=== PATIENT | female | born 1980 | race Caucasian/White ===

== ENCOUNTER → 2016-03-13 | Outpatient (CLI) | payer BC ==
[~2016-03-13] MED LIST: CALCIUM1 CAP PO; IBU800 M1 PO; MOTRIN 600600 MG/TAB PO; PERCOCET 325 MG1 TA2 PO; PRENATAL1 TA1 PO; SLOW FE45 MG PO; Senokot-S PO
== END ==
LOC: SUN.DIA 09:25
DX: O24.419 Gestational diabetes mellitus in pregnancy, unspecified control (principal); Z3A.32 32 weeks gestation of pregnancy; Z71.3 Dietary counseling and surveillance
CPT/HCPCS: G0108

== ENCOUNTER 2016-03-21 14:57 | Inpatient (IN) | payer BC ==
[~2016-03-21] VITALS: Ht 177.8 cm; Wt 97.3 kg
[~2016-03-21 14:57] MED LIST changes: -IBU800 M1 PO
[2016-05-03] VITALS (30 sets, daily range): BP systolic 105–141; BP diastolic 52–88; PULSE 64–111; TEMP 97.6–98
[2016-05-03 08:52] LABS: BASO % 0.2 % (0.0-2.0); EOS % 0.7 % (0-4.0); GRAN # 3.8 (1.4-6.5); GRAN % 66.1 % (42.2-75.2); LYMPH # 1.5 (1.2-3.4); LYMPH % 26.3 % (20.0-51.0); MEAN CELL VOLUME 87 fl (80.0-100.0); MEAN CORPUSCULAR HGB CONC 34 g/dl (33.0-37.0); MEAN PLATELET VOLUME 9.7 fl (7.4-10.4); MONO # 0.4 (0.1-0.6); MONO % 6.5 % (1.7-9.3); PLATELET COUNT 252 K/mm3 (130-400); RED BLOOD COUNT 3.86 M/mm3 (4.10-5.30); REDCELL DISTRIBUTION WIDTH-CV 13.8 % (11.5-14.5); WHITE BLOOD COUNT 5.7 K/mm3 (4.8-10.8)
[2016-05-03 09:03] LABS: HEMATOCRIT 33.5 % (37.0-47.0); HEMOGLOBIN 11.4 g/dl (12.5-16.0); MEAN CORPUSCULAR HEMOGLOBIN 30 pg (27.0-31.0)
[2016-05-04 01:30] VITALS: BP 125/67; PULSE 65; TEMP 97.9
[2016-05-04 08:30] VITALS: BP 110/60; PULSE 82; TEMP 97.3
[2016-05-04] MEDS ORDERED: IBU800 M1 PO (11:46)
[2016-05-04] MEDS ORDERED: PERCOCET 325 MG1 TA2 PO (11:46)
[2016-05-04 21:30] VITALS: BP 124/71; PULSE 75; TEMP 97.5
[2016-05-05 07:05] VITALS: BP 110/56; PULSE 71; TEMP 97.5
== END 2016-05-05 15:55 | disposition home or self-care (01) | DRG 775 ==
LOC: LDR 05-03 06:58 → OB 05-03 20:30 → EDSTATUS 05-09 07:34 → LDRO 05-09 14:56
PROVIDERS: Obstetrics & Gynecology
PROC: 10E0XZZ Delivery of Products of Conception, External Approach (ICD-10-PCS; principal; 2016-05-03)
PROC: 0KQM0ZZ Repair Perineum Muscle, Open Approach (ICD-10-PCS; 2016-05-03)
PROC: 10907ZC Drainage of Amniotic Fluid, Therapeutic from Products of Conception, Via Natural or Artificial Opening (ICD-10-PCS; 2016-05-03)
DX: O99.72 Diseases of the skin and subcutaneous tissue complicating childbirth (principal); L93.0 Discoid lupus erythematosus; O34.211 Maternal care for low transverse scar from previous cesarean delivery; N85.8 Other specified noninflammatory disorders of uterus; O09.523 Supervision of elderly multigravida, third trimester; O70.1 Second degree perineal laceration during delivery; O24.410 Gestational diabetes mellitus in pregnancy, diet controlled; Z3A.39 39 weeks gestation of pregnancy; Z37.0 Single live birth
CPT/HCPCS: J2590; J7120

== ENCOUNTER 2017-01-02 12:02 | Emergency (ER) | payer BC ==
[~2017-01-02] VITALS: Ht 177.8 cm; Wt 80.9 kg
[~2017-01-02 12:02] MED LIST changes: +IBU800 M1 PO
[2017-01-02 12:06] VITALS: TEMP 97.3
[2017-01-02 13:08] LABS: COLLECTION METHOD CLEAN CATCH
[2017-01-02 13:13] LABS: MUCOUS Present /lpf; PH 6 (5-8); SQUAMOUS EPITHELIAL 0-2 /hpf; URINE APPEARANCE Clear; URINE BACTERIA None Seen /hpf; URINE BILIRUBIN Negative (NEGATIVE); URINE BLOOD Negative (NEGATIVE); URINE COLOR Yellow; URINE GLUCOSE Negative (NEGATIVE); URINE KETONE Negative (NEGATIVE); URINE LEUKOCYTE ESTERASE Negative (NEGATIVE); URINE PROTEIN(semi-quant) Negative (NEGATIVE); URINE RBC 0-2 /hpf; URINE UROBILINOGEN Negative (NEGATIVE); URINE WBC 0-2 /hpf
[2017-01-02 13:52] VITALS: BP 112/72; PULSE 67
== END 2017-01-02 13:52 | disposition home or self-care (01) ==
LOC: COL.ER 12:02
PROVIDERS: Emergency Medicine
DX: R07.89 Other chest pain (principal); R51 Headache; Z32.02 Encounter for pregnancy test, result negative

== ENCOUNTER → 2018-03-14 | Outpatient (CLI) | payer BC | LOC: COL.RAD 09:33 | DX: R94.5 Abnormal results of liver function studies (principal) ==

== ENCOUNTER → 2018-04-08 | Outpatient (CLI) | payer BC | LOC: MC.RAD 10:47 | DX: Z12.31 Encounter for screening mammogram for malignant neoplasm of breast (principal) ==

== ENCOUNTER → 2018-08-06 | Outpatient (CLI) | payer BC ==
[~2018-08-06] VITALS: Ht 177.8 cm; Wt 81.5 kg
[2018-08-06] VITALS (13 sets, daily range): BP systolic 115–149; BP diastolic 65–80; PULSE 57–75
--- NOTE | 2018-08-06 13:45 | NUR ---
Pt to ct per ambulation. Pt layed in supine position. Monitors applied.
--- NOTE | 2018-08-06 14:12 | NUR ---
Specimens obtained by Dr Ramsey and placed in formalin. Specimen labeled.
== END ==
LOC: COL.RAD 13:14
DX: I73.00 Raynaud's syndrome without gangrene (principal); R94.5 Abnormal results of liver function studies; M32.9 Systemic lupus erythematosus, unspecified
CPT/HCPCS: 32108

== ENCOUNTER → 2019-05-06 | Outpatient (CLI) | payer BC | LOC: MC.RAD 11:00 | DX: Z12.31 Encounter for screening mammogram for malignant neoplasm of breast (principal) ==

== ENCOUNTER → 2020-06-27 | Outpatient (CLI) | payer BC | LOC: MC.RAD 09:45 | DX: Z12.31 Encounter for screening mammogram for malignant neoplasm of breast (principal) ==

== ENCOUNTER → 2021-08-22 | Outpatient (CLI) | payer BC | LOC: MC.RAD 09:01 | DX: Z12.31 Encounter for screening mammogram for malignant neoplasm of breast (principal) ==

== ENCOUNTER → 2023-04-18 | Outpatient (CLI) | payer BC | LOC: MC.RAD 08:31 | DX: Z12.31 Encounter for screening mammogram for malignant neoplasm of breast (principal) ==